=== PATIENT | female | born 1960 | race Two or more races ===

== ENCOUNTER 2024-03-08 06:46 | Day surgery (SDC) | payer OTHER ==
[2024-03-01 13:14] LABS: INR 1.05; PARTIAL THROMBOPLASTIN TIME 29.3 SECONDS (22.0-34.0); PROTHROMBIN TIME 11.4 SECONDS (9.0-11.5)
[2024-03-01 13:20] VITALS: BP 130/83
[~2024-03-08] VITALS: Ht 154.9 cm; Wt 81.6 kg
[~2024-03-08 06:46] MED LIST: ATORVASTATIN CA10 MG PO; CALCIUM 600+D1 EAC1 PO; FOSAMAX70 MG PO; HYFIBER WI12 GM/303 PO; LEVOTHYROXINE25 MCG PO; OMEPRAZOLE-BIC1 EAC1 PO
[2024-03-08] MEDS ORDERED: HEMOSTATIC MATRIX 1 KIT KIT TOP ONE (10:29)
[2024-03-08] MEDS ORDERED: POVIDONE-IODINE 118 ML BOTT TOP ONE (10:30)
[2024-03-08] MEDS ORDERED: LIDOCAINE HCL 1%/EPINEPHRINE 20ML VIAL IJ ONE (10:30)
[2024-03-08] MEDS ORDERED: CEFTRIAXONE SODIUM 2,000 MG VIAL ONE (10:30)
[2024-03-08] MEDS ORDERED: BUPIVACAINE HCL/Mpf 0.5% 10ML VIAL ONE (10:30)
[2024-03-08] MEDS ORDERED: DIBUCAINE 30 GM TUBE ONE (10:30)
[2024-03-08] MEDS ORDERED: METRONIDAZOLE/SODIUM CHLORIDE 500 MG/100 ML PIGGYBACK IV ONE (10:31)
[2024-03-08] MEDS ORDERED: COLACE100 MG PO (12:33)
[2024-03-08] MEDS ORDERED: TRAM1TAB98 PO (12:33)
== END 2024-03-08 18:00 | disposition home or self-care (01) ==
LOC: CIR.AMB 06:46
PROVIDERS: ATTEND Surgery
DX: D12.8 Benign neoplasm of rectum (principal); E78.00 Pure hypercholesterolemia, unspecified; E03.9 Hypothyroidism, unspecified; R73.03 Prediabetes; H52.209 Unspecified astigmatism, unspecified eye; H52.10 Myopia, unspecified eye; H91.90 Unspecified hearing loss, unspecified ear